=== PATIENT | female | born 1985 | race Caucasian/White ===

== ENCOUNTER 2018-01-16 20:36 | Emergency (ER) | payer BC ==
--- NOTE | 2018-01-16 20:53 | ER Document Report ---
ED Medical Screen (RME) - General Chief Complaint: Flank Pain Stated Complaint: FLANK PAIN Time Seen by Provider: 01/16/18 20:50 Mode of Arrival: Wheelchair Information source: Patient Notes: 32-year-old female presented to ED for complaint of left pelvic and flank pain started about 430 today. She states about 730 it got much worse. She states she has been nauseated but no vomiting. She states it was cramping but now has moved around to the flank area. She states she has had previous kidney stones but they were more to the back and this is. She states that her last menstrual cycle was 21 December. Patient is alert and oriented respirations regular and unlabored, speaking in full sentences. She is in a wheelchair due to the pain. I have greeted and performed a rapid initial assessment of this patient. A comprehensive ED assessment and evaluation of the patient, analysis of test results and completion of medical decision making process will be conducted by an additional ED providers. TRAVEL OUTSIDE OF THE [place] IN LAST 30 DAYS: No - Related Data Allergies/Adverse Reactions: hydromorphone HCl [From Dilaudid] Allergy (Severe, Verified 04/08/15 17:41) chest pain, deafness soy [Soy] Allergy (Verified 04/08/15 17:41) n and v Past Medical History - Past Medical History Cardiac Medical History: Reports: Hx Hypertension - on meds, currently being taper off (with ) Denies: Hx Heart Murmur Neurological Medical History: Denies: Hx Seizures Endocrine Medical History: Reports: Hx Hypothyroidism - on meds. Denies: Hx Hyperthyroidism. Comment Only: Hx Diabetes Mellitus Type 2 - glucose intolerance Renal/ Medical History: Reports: Hx Kidney Stones Psychiatric Medical History: Reports: Hx Depression - depression Denies: Hx Bipolar Disorder, Hx Post Traumatic Stress Disorder, Hx Schizophrenia Past Surgical History: Reports: Hx Section - 6, Hx Cholecystectomy, Hx Thyroid Surgery - Complete thyroidectomy.. Denies: Hx Hysterectomy, Hx Pacemaker - Immunizations Immunizations up to date: Yes Hx Diphtheria, Pertussis, Tetanus Vaccination: Yes Physical Exam - Vital signs Vitals: Temp Pulse Resp BP Pulse Ox 98.1 F 94 20 151/111 H 98 01/16/18 20:43 01/16/18 20:43 01/16/18 20:43 01/16/18 20:43 01/16/18 20:43 Course - Vital Signs Vital signs: Temp Pulse Resp BP Pulse Ox 98.1 F 94 20 151/111 H 98 01/16/18 20:43 01/16/18 20:43 01/16/18 20:43 01/16/18 20:43 01/16/18 20:43 Doctor's Discharge - Discharge Referrals: CATALINA TAYLOR MD [Primary Care Provider] - Follow up as needed
[2018-01-16 21:41] LABS: ABSOLUTE BASOPHILS # (AUTO) 0.1 10^3/uL (0.0-0.2); ABSOLUTE EOSINOPHILS # (AUTO) 0.4 10^3/uL (0.0-0.6); ABSOLUTE LYMPHOCYTES (AUTO) 2.3 10^3/uL (0.5-4.7); ABSOLUTE MONOCYTES (AUTO) 0.7 10^3/uL (0.1-1.4); ABSOLUTE NEUT (AUTO) 8.8 10^3/uL (1.7-8.2); BASOPHILS % (AUTO) 0.5 % (0-2); EOSINOPHILS % (AUTO) 3.1 % (0-6); HEMATOCRIT 41.7 % (36.0-47.0); HEMOGLOBIN 14.4 g/dL (12.0-15.5); LYMPHOCYTES % (AUTO) 19.2 % (13-45); MEAN CORPUSCULAR HEMOGLOBIN 29.1 pg (27.0-33.4); MEAN CORPUSCULAR HGB CONC 34.6 g/dL (32.0-36.0); MEAN CORPUSCULAR VOLUME 84 fl (80-97); MONOCYTES % (AUTO) 5.5 % (3-13); PLATELET COUNT 297 10^3/uL (150-450); RED BLOOD COUNT 4.97 10^6/uL (3.72-5.28); RED CELL DISTRIBUTION WIDTH 12.5 % (11.5-14.0); SEGMENTED NEUTROPHILS % (AUTO) 71.7 % (42-78); TOTAL CELLS COUNTED % (AUTO) 100 %; WHITE BLOOD COUNT 12.2 10^3/uL (4.0-10.5)
[2018-01-16] MEDS ORDERED: KETOROLAC TROMETHAMINE INJ/PF 30 MG/1 ML SDV IV ONE (21:44)
[2018-01-16] MEDS ORDERED: NORMAL SALINE 1000 ML 1,000 ML IV ONE (21:45)
[2018-01-16] MEDS ORDERED: ONDANSETRON HCL INJ/PF 4 MG/2 ML SDV IV ONE (21:45)
--- NOTE | 2018-01-16 21:48 | ER Document Report ---
ED GI/ - General Chief Complaint: Flank Pain Stated Complaint: FLANK PAIN Time Seen by Provider: 01/16/18 20:50 Mode of Arrival: Wheelchair Notes: Patient is a 32-year-old female that comes to the emergency department for chief complaint of sudden onset left lower abdominal pain radiating around to her left left-sided flank. She reports nausea without vomiting. She denies vaginal discharge or bleeding, dysuria, hematuria, fever or chills. She does have a history of both ovarian cysts and kidney stone. Remaining past medical history includes hypertension, hypothyroidism, cholecystectomy, C-sections. TRAVEL OUTSIDE OF THE [place] IN LAST 30 DAYS: No - Related Data Allergies/Adverse Reactions: hydromorphone HCl [From Dilaudid] Allergy (Severe, Verified 04/08/15 17:41) chest pain, deafness soy [Soy] Allergy (Verified 04/08/15 17:41) n and v Past Medical History - General Information source: Patient - Social History Smoking Status: Never Smoker Frequency of alcohol use: None Drug Abuse: None Lives with: Family Family History: Reviewed & Not Pertinent - Pt. is adopted - Past Medical History Cardiac Medical History: Reports: Hx Hypertension - on meds, currently being taper off (with ) Denies: Hx Heart Murmur Neurological Medical History: Denies: Hx Seizures Endocrine Medical History: Reports: Hx Hypothyroidism - on meds. Denies: Hx Hyperthyroidism. Comment Only: Hx Diabetes Mellitus Type 2 - glucose intolerance Renal/ Medical History: Reports: Hx Kidney Stones Psychiatric Medical History: Reports: Hx Depression - depression Denies: Hx Bipolar Disorder, Hx Post Traumatic Stress Disorder, Hx Schizophrenia Past Surgical History: Reports: Hx Section - 6, Hx Cholecystectomy, Hx Thyroid Surgery - Complete thyroidectomy.. Denies: Hx Hysterectomy, Hx Pacemaker - Immunizations Immunizations up to date: Yes Hx Diphtheria, Pertussis, Tetanus Vaccination: Yes Review of Systems - Review of Systems Constitutional: No symptoms reported EENT: No symptoms reported Cardiovascular: No symptoms reported Respiratory: No symptoms reported Gastrointestinal: See HPI Genitourinary: See HPI Female Genitourinary: No symptoms reported Musculoskeletal: No symptoms reported Skin: No symptoms reported Hematologic/Lymphatic: No symptoms reported Neurological/Psychological: No symptoms reported Physical Exam - Vital signs Vitals: Temp Pulse Resp BP Pulse Ox 98.1 F 94 20 151/111 H 98 01/16/18 20:43 01/16/18 20:43 01/16/18 20:43 01/16/18 20:43 01/16/18 20:43 - Notes Notes: GENERAL: Alert, interacts well. Minimal discomfort, no noted distress HEAD: Normocephalic, atraumatic. EYES: Pupils equal, round, and reactive to light. Extraocular movements intact. ENT: Oral mucosa moist, tongue midline. Oropharynx unremarkable. Airway patent. Nares patent, no nasal septal hematoma, TM's intact. NECK: Full range of motion. Supple. Trachea midline. LUNGS: Clear to auscultation bilaterally, no wheezes, rales, or rhonchi. No respiratory distress. HEART: Regular rate and rhythm. No murmur ABDOMEN: There is mild generalized left abdominal tenderness, nonspecific, no guarding. Remaining abdomen benign. GENITOURINARY: Deferred EXTREMITIES: Moves all 4 extremities spontaneously. No edema, normal radial and dorsalis pedis pulses bilaterally. No cyanosis. BACK: no cervical, thoracic, lumbar midline tenderness. No saddle anesthesia, normal distal neurovascular exam. No CVA tenderness noted. NEUROLOGICAL: Alert and oriented x3. Normal speech. [cranial nerves II through XII grossly intact]. PSYCH: Normal affect, normal mood. SKIN: Warm, dry, normal turgor. No rashes or lesions noted. Course - Re-evaluation Re-evalutation: Patient's abdomen is unremarkable. She does not appear to be in significant distress but she is reporting pain. She does not have any noted CVA tenderness. No tachycardia, fever, hypotension. CBC unremarkable, chemistry unremarkable, urinalysis shows hematuria suggesting ureterolithiasis. No infection in the urine. Ultrasound showing mild left hydronephrosis. Discussed with patient. After medications her symptoms have completely resolved. Patient will be provided with symptom management, discussed close urology follow-up, discussed return precautions in detail, patient states satisfaction and agreement. - Vital Signs Vital signs: Temp Pulse Resp BP Pulse Ox 98.1 F 85 18 129/86 H 98 01/16/18 20:43 01/17/18 00:20 01/17/18 00:20 01/17/18 00:20 01/17/18 00:20 - Laboratory Result Diagrams: 01/16/18 20:55 01/16/18 20:55 Laboratory results interpreted by me: 01/16/18 01/16/18 01/16/18 20:55 20:55 20:55 WBC 12.2 H Absolute Neutrophils 8.8 H Calcium 10.4 H Urine Protein 30 H Urine Blood LARGE H Discharge - Discharge Clinical Impression: LLQ abdominal pain, Left flank pain Hematuria Qualifiers: Hematuria type: other microscopic Qualified Code(s): R31.29 - Other microscopic hematuria Condition: Stable Disposition: HOME, SELF-CARE Additional Instructions: Your evaluation indicates a passing kidney stone on the left side. Take nausea medication as needed, take Toradol and morphine pain medicine as prescribed if needed. Drink plenty of fluids and rest. Follow-up with the urology referral listed below for additional evaluation and management, call tomorrow for the appointment. Return if you worsen including vomiting, severe worsening pain, fever of 100.4 or greater, or any other concerning or worsening symptoms. [facility] [address] [place], [place] [id number] [facility] [address] [place], [place] [id number] Micheal Meredith MD Doctor in [place], [place] Address: [address] [place] [address] [address], [place] [address] Prescriptions: Morphine Sulfate [Morphine Ir 15 Mg Tablet] 15 mg PO Q4HP PRN #12 tablet PRN Reason: Ketorolac Tromethamine [Toradol 10 mg Tablet] 10 mg PO Q8HP PRN #24 tablet PRN Reason: Ondansetron [Zofran Odt 4 mg Tablet] 1 - 2 tab PO Q4H PRN #15 tab.rapdis PRN Reason: For Nausea/Vomiting Referrals: CATALINA TAYLOR MD [Primary Care Provider] - Follow up as needed
[2018-01-16 21:49] LABS: APPEARANCE,URINE SLIGHTLY-CLOUDY; BILIRUBIN,URINE NEGATIVE (NEGATIVE); CALCIUM OXALATE CRYSTALS,URINE RARE /HPF; COLOR,URINE YELLOW; GLUCOSE, URINE NEGATIVE (NEGATIVE); KETONES,URINE NEGATIVE (NEGATIVE); LEUKOCYTE ESTERASE,URINE NEGATIVE (NEGATIVE); NITRITE,URINE NEGATIVE (NEGATIVE); PROTEIN,URINE 30 mg/dL (NEGATIVE); URINE SPECIFIC GRAVITY 1.021; UROBILINOGEN,URINE NEGATIVE mg/dL (<2.0)
[2018-01-16 22:04] LABS: ALANINE AMINOTRANSFERASE 22 U/L (9-52); ALBUMIN 4.5 g/dL (3.5-5.0); ALKALINE PHOSPHATASE 79 U/L (38-126); ANION GAP 12 (5-19); ASPARTATE AMINO TRANSFERASE 23 U/L (14-36); BILIRUBIN,DIRECT 0.2 mg/dL (0.0-0.4); BILIRUBIN,TOTAL 0.6 mg/dL (0.2-1.3); BLOOD UREA NITROGEN 10 mg/dL (7-20); CALCIUM 10.4 mg/dL (8.4-10.2); CARBON DIOXIDE 25 mmol/L (22-30); CHLORIDE 104 mmol/L (98-107); GLUCOSE 100 mg/dL (75-110); POTASSIUM 4.3 mmol/L (3.6-5.0); TOTAL PROTEIN 7.6 g/dL (6.3-8.2)
[2018-01-16] MEDS ORDERED: FENTANYL CITRATE INJ/PF 100 MCG/2 ML AMPUL IV ONE (23:01)
--- NOTE | 2018-01-16 23:08 | RADIOLOGY REPORT (SQ) ---
EXAM DESCRIPTION: US RETROPERITONEUM LIMITED COMPLETED DATE/TME: 01/16/2018 21:56 CLINICAL HISTORY: 32 years, Female, flank pain, nausea, eval kidneys COMPARISON: None. TECHNIQUE: Transverse and longitudinal sonographic images of the kidneys LIMITATIONS: None. FINDINGS: The right kidney measures 9 x 5 cm. The left kidney measures 11 x 5 cm. Mild left-sided hydronephrosis of the indeterminate etiology. No right-sided hydronephrosis. No renal mass or calculus. No perinephric fluid collection. The cortical medullary differentiation is preserved bilaterally. IMPRESSION: Mild left-sided hydronephrosis of indeterminate etiology 2010 [facility] [employer]- All Rights Reserved
[2018-01-16] MEDS ORDERED: HYDROCODONE/ACETAMINOPHEN 5-325 MG (6 TAB/ER DISP) PO PRN (23:37)
[2018-01-16] MEDS ORDERED: ONDANSETRON ODT 4 MG TAB (6 TAB/ER DISP) PO PRN (23:37)
[2018-01-17 00:49] VITALS: BP 129/86
== END 2018-01-17 00:35 | disposition home or self-care (01) ==
LOC: ER 20:36
DX: R31.29 Other microscopic hematuria (principal); R10.32 Left lower quadrant pain; R10.9 Unspecified abdominal pain; R11.0 Nausea; I10 Essential (primary) hypertension; Z79.899 Other long term (current) drug therapy; E11.9 Type 2 diabetes mellitus without complications
CPT/HCPCS: 99284; 96361; 96374; 96375; 36415; 84703; 85025; 80053; 81001; 76775; J3010; J1885; J2405; J7030

== ENCOUNTER 2019-09-08 13:05 | Emergency (ER) | payer BC ==
--- NOTE | 2019-09-08 13:52 | ER Document Report ---
ED Medical Screen (RME) - General Chief Complaint: Arm Problem Stated Complaint: ARM SWELLING Time Seen by Provider: 09/08/19 13:48 Primary Care Provider: CATALINA TAYLOR MD [Primary Care Provider] - Follow up as needed Mode of Arrival: Ambulatory Information source: Patient Notes: HPI; 34-year-old female presents emergency room complaining of right upper arm swelling. Had gastric sleeve on Monday IV was in the right arm. States she woke up with the swelling this morning. Was told to come to the ER to rule out a DVT. No recent travel. No history of DVTs or PEs in the past. Is right- handed. PE: Alert and oriented x3. Mild distress noted. Lungs: Clear to auscultation without rales, rhonchi, wheezes. Heart: Regular rate and rhythm without murmurs, rubs, gallops. Right radial pulse. Swelling noted to right upper extremity. I have greeted and performed a rapid initial assessment of this patient. A comprehensive ED assessment and evaluation of the patient, analysis of test results and completion of the medical decision making process will be conducted by additional ED providers. I have specifically instructed the patient or family members with the patient to immediately return to any nursing staff should anything change in the patient's condition or with their chief complaint. TRAVEL OUTSIDE OF THE [place] IN LAST 30 DAYS: No - Related Data Allergies/Adverse Reactions: hydromorphone HCl [From Dilaudid] Allergy (Severe, Verified 09/08/19 13:43) chest pain, deafness soy [Soy] Allergy (Verified 09/08/19 13:43) n and v Home Medications: hydrocodone omeprazole zofran labetalol loboxil Past Medical History - Social History Chew tobacco use (# tins/day): No Frequency of alcohol use: None Drug Abuse: None - Past Medical History Cardiac Medical History: Reports: Hx Hypertension - on meds, currently being taper off (with ) Denies: Hx Heart Murmur Neurological Medical History: Denies: Hx Seizures Endocrine Medical History: Reports: Hx Hypothyroidism - on meds. Denies: Hx Hyperthyroidism. Comment Only: Hx Diabetes Mellitus Type 2 - glucose intolerance Renal/ Medical History: Reports: Hx Kidney Stones. Denies: Hx Peritoneal Dialysis Psychiatric Medical History: Reports: Hx Depression - depression Denies: Hx Bipolar Disorder, Hx Post Traumatic Stress Disorder, Hx Schizophrenia Past Surgical History: Reports: Hx Section - 6, Hx Cholecystectomy, Hx Thyroid Surgery - Complete thyroidectomy.. Denies: Hx Hysterectomy, Hx Pacemaker - Immunizations Immunizations up to date: Yes Hx Diphtheria, Pertussis, Tetanus Vaccination: Yes Physical Exam - Vital signs Vitals: Temp Pulse Resp BP Pulse Ox 98.7 F 110 H 16 156/117 H 95 09/08/19 13:14 09/08/19 13:14 09/08/19 13:14 09/08/19 13:14 09/08/19 13:14 Course - Vital Signs Vital signs: Temp Pulse Resp BP Pulse Ox 98.7 F 110 H 16 156/117 H 95 09/08/19 13:44 09/08/19 13:14 09/08/19 13:14 09/08/19 13:14 09/08/19 13:14 Doctor's Discharge - Discharge Referrals: CATALINA TAYLOR MD [Primary Care Provider] - Follow up as needed
--- NOTE | 2019-09-08 16:05 | ER Document Report ---
ED Extremity Problem, Upper - General Chief Complaint: Arm Problem Stated Complaint: ARM SWELLING Time Seen by Provider: 09/08/19 13:48 Primary Care Provider: CATALINA TAYLOR MD [Primary Care Provider] - Follow up in 3-5 days Mode of Arrival: Ambulatory Notes: Patient is a 34-year-old female who presents to the emergency department with a chief complaint of right upper arm swelling. Patient was seen at [facility] on Monday and had a gastric sleeve done. Patient had her IV in her right arm. This morning she woke up and had some swelling and pain to her right arm. Patient called the on-call nurse and was told to go to the emergency department. Patient is right-handed. Denies any fever, body aches, or chills. TRAVEL OUTSIDE OF THE [place] IN LAST 30 DAYS: No - Related Data Allergies/Adverse Reactions: hydromorphone HCl [From Dilaudid] Allergy (Severe, Verified 09/08/19 13:43) chest pain, deafness soy [Soy] Allergy (Verified 09/08/19 13:43) n and v Home Medications: hydrocodone omeprazole zofran labetalol loboxil Past Medical History - General Information source: Patient - Social History Smoking Status: Never Smoker Chew tobacco use (# tins/day): No Frequency of alcohol use: None Drug Abuse: None Family History: Reviewed & Not Pertinent - Pt. is adopted Patient has homicidal ideation: No - Past Medical History Cardiac Medical History: Reports: Hx Hypertension - on meds Denies: Hx Heart Murmur Neurological Medical History: Denies: Hx Seizures Endocrine Medical History: Reports: Hx Hypothyroidism - on meds. Denies: Hx Hyperthyroidism. Comment Only: Hx Diabetes Mellitus Type 2 - glucose intolerance Renal/ Medical History: Reports: Hx Kidney Stones. Denies: Hx Peritoneal Dialysis Psychiatric Medical History: Reports: Hx Depression - depression Denies: Hx Bipolar Disorder, Hx Post Traumatic Stress Disorder, Hx Schizophrenia Past Surgical History: Reports: Hx Section - 6, Hx Cholecystectomy, Hx Orthopedic Surgery - ACL reconstruction 2018, Hx Thyroid Surgery - Complete thyroidectomy.. Denies: Hx Hysterectomy, Hx Pacemaker - Immunizations Immunizations up to date: Yes Hx Diphtheria, Pertussis, Tetanus Vaccination: Yes Review of Systems - Review of Systems Notes: REVIEW OF SYSTEMS: CONSTITUTIONAL : Denies recent illness. Denies recent unintentional weight loss. Denies fever, chills, or sweats. EENT: Denies eye, ear, throat, or mouth pain, discharge, or symptoms. Denies nasal or sinus congestion. CARDIOVASCULAR: Denies chest pain. RESPIRATORY: Denies shortness of breath, cough, congestion, difficulty breathing, or wheezing. GASTROINTESTINAL: Denies nausea, vomiting, and diarrhea. Denies abdominal pain. Denies constipation. GENITOURINARY: Denies difficulty urinating, burning, blood in urine, urgency or frequency. MUSCULOSKELETAL: Denies neck and back pain. See HPI. SKIN: See HPI. HEMATOLOGIC : Denies easy bruising or bleeding. LYMPHATIC: Denies swollen, painful, enlarged glands. NEUROLOGICAL: Denies no numbness or tingling denies weakness. Denies headache. Denies altered mental status. Denies alteration in speech. PSYCHIATRIC: Denies stress, anxiety, alteration in sleep patterns, or depression. All other systems reviewed and negative. Physical Exam - Vital signs Vitals: Temp Pulse Resp BP Pulse Ox 98.7 F 110 H 16 156/117 H 95 09/08/19 13:14 09/08/19 13:14 09/08/19 13:14 09/08/19 13:14 09/08/19 13:14 - Notes Notes: PHYSICAL EXAMINATION: GENERAL: Appears well, healthy, well-nourished, no acute distress. HEAD: Normocephalic, atraumatic. EYES: PERRL, conjunctiva normal, all extraocular movements intact, sclera nonicteric ENT: Moist mucous membranes. NECK: Supple, no noticeable swelling, redness, rash. Normal range of motion. LUNGS: Equal breath sounds bilaterally and clear to auscultation. No wheezes rales or rhonchi. CARDIOVASCULAR: S1-S2, regular rate, regular rhythm. Radial pulses 2+, normal. ABDOMEN: Normoactive bowel sounds. Soft, nontender, no guarding, no rebound tenderness, and no masses palpated. EXTREMITIES: Normal strength and range of motion, no pitting or edema. No cyanosis. NEUROLOGICAL: Moves all extremities upon command. Strength 5/5 in all extremities. PSYCH: Normal mood, normal affect. SKIN: Warm, dry. No rash, lesions, ulcerations noted. Normal skin turgor. Course - Re-evaluation Re-evalutation: 09/08/19 16:01 Venous Doppler study is unofficially negative. Patient presents with symptoms most consistent with an acute cellulitis. Vitals within normal limits. Patient does not meet sepsis criteria is overall very well in appearance. Exam and history are not consistent with DVT. Patient will be started on coverage for both staph and strep. At this time will discharge with return precautions and follow-up recommendations. Verbal discharge instructions given a the bedside and opportunity for questions given. Medication warnings reviewed. Patient is in agreement with this plan and has verbalized understanding of return precautions and the need for primary care follow-up in the next 24-72 hours. - Vital Signs Vital signs: Temp Pulse Resp BP Pulse Ox 98.7 F 110 H 16 156/117 H 95 09/08/19 13:44 09/08/19 13:14 09/08/19 13:14 09/08/19 13:14 09/08/19 13:14 Discharge - Discharge Clinical Impression: Swelling of right upper extremity Cellulitis Qualifiers: Site of cellulitis: extremity Site of cellulitis of extremity: upper extremity Laterality: right Qualified Code(s): L03.113 - Cellulitis of right upper limb Condition: Stable Disposition: HOME, SELF-CARE Additional Instructions: The rash is likely due to infection of your skin. You need to take the antibiotics as prescribed. Do not stop even if the rash goes away until you have completed all the antibiotics. The area of redness was traced out here in the emergency department with a marking pen. You need to return to emergency department if the redness spreads outside of this area by more than 2 cm in any direction. You should also return if you develop fevers with temperature greater than 101, persistent vomiting, worsening pain, or have any other symptoms that are concerning to you. Take your pain medication that was given to you by your surgeon every 12 hours with 650 mg of Tylenol. 6 hours after receiving your pain medication, take 975 mg of Tylenol. You can use children's Tylenol, as this is in liquid form. Prescriptions: Cephalexin Monohydrate [Keflex 250 mg/5 ml Susp] 500 mg PO Q6H #1 bottle Referrals: CATALINA TAYLOR MD [Primary Care Provider] - Follow up in 3-5 days
--- NOTE | 2019-09-08 16:16 | RADIOLOGY REPORT (SQ) ---
EXAM DESCRIPTION: VENOUS UNILATERAL UPPER IMAGES COMPLETED DATE/TIME: 09/08/2019 4:02 pm REASON FOR STUDY: right arm swelling COMPARISON: None. TECHNIQUE: Dynamic and static ivory scale and color images acquired of the right arm venous system. S elected spectral images acquired with additional compression and augmentation maneuvers. The contrala teral subclavian vein and internal jugular vein were also imaged. Images stored on PACS. LIMITATIONS: None. FINDINGS: INTERNAL JUGULAR VEIN: Normal phasicity, compression, augmentation. No visualized echogeni c material on ivory scale. No defects on color images. Comparison opposite side normal. SUBCLAVIAN VEIN: Normal compression, augmentation. No visualized echogenic material on ivory scale. No defects on color images. AXILLARY VEIN: Normal compression, augmentation. No visualized echogenic material on ivory scale. No d efects on color images. BRACHIAL VEIN: Normal compression, augmentation. No visualized echogenic material on ivory scale. No d efects on color images. BASILIC VEIN: Normal compression, augmentation. No visualized echogenic material on ivory scale. No de fects on color images. CEPHALIC VEIN: Normal compression, augmentation. No visualized echogenic material on ivory scale. No d efects on color images. OTHER: No other significant finding. CONTRALATERAL SUBCLAVIAN VEIN AND INTERNAL JUGULAR VEIN: Not assessed. IMPRESSION: NO EVIDENCE DVT OR SVT RIGHT ARM. TECHNICAL DOCUMENTATION: JOB ID: [id number] 2010 [employer]- All Rights Reserved Reading location - IP/workstation name: [email or web address]
[2019-09-08 16:18] VITALS: BP 176/111
== END 2019-09-08 16:17 | disposition home or self-care (01) ==
LOC: ER 13:05
DX: L03.113 Cellulitis of right upper limb (principal); M79.601 Pain in right arm; Z98.84 Bariatric surgery status; I10 Essential (primary) hypertension; E89.0 Postprocedural hypothyroidism; Z79.899 Other long term (current) drug therapy; Z79.891 Long term (current) use of opiate analgesic; Z88.6 Allergy status to analgesic agent; Z88.5 Allergy status to narcotic agent; Z91.018 Allergy to other foods
CPT/HCPCS: 93971; 99283

== ENCOUNTER 2019-09-24 14:36 | Emergency (ER) | payer BC ==
--- NOTE | 2019-09-24 15:35 | ER Document Report ---
ED Medical Screen (RME) - General Chief Complaint: Post Surgical Pain Stated Complaint: POST OP PAIN Time Seen by Provider: 09/24/19 15:24 Primary Care Provider: CATALINA TAYLOR MD [Primary Care Provider] - Follow up as needed TRAVEL OUTSIDE OF THE [place] IN LAST 30 DAYS: No - HPI Notes: 09/24/19 15:28 34-year-old female with a history of hypertension, hypothyroidism and GERD p resents to the emergency room for evaluation of substernal chest pain that radiates to her back, sharp and stabbing which started yesterday. Patient reports that she had a gastric sleeve done on September 06, [address] Mcdonald in [place]. Patient denies being on blood thinners, is not on control, does not smoke, has never had cancer. At triage patient was tachycardic with a heart rate of 103. reports . Patient states that she does have shortness of breath on exertion but did not have any shortness of breath at rest. Denies any nausea vomiting or diarrhea. Patient is on a pured diet, tolerating food intake without any issues. Last menstrual cycle was August 29, 2019. Gastric sleeve was done laparoscopically. Denies any fevers or chills. Patient takes labetalol 20 mg twice daily, Levoxyl 175 mg daily and omeprazole 40 mg daily. Consult[address] with Dr. Maguire, ER supervising physician who agreed with CTA of chest and abdomen due to recent surgery for concern of adhesions and with patient having pain that radiates to her back and sharp and constant, tachycardia, obese, history of hypertension on medication at 1542. Spoke with scada technician who stated that if scans are normal, and were concerned about gastric sleeve leaking, we can do oral contrast with CT of her abdomen thereafter 09/24/19 15:38 I have greeted and performed a rapid initial assessment of this patient. A comprehensive ED assessment and evaluation of the patient, analysis of test results and completion of the medical decision making process will be conducted by additional ED providers. PHYSICAL EXAMINATION: GENERAL: Well-appearing, well-nourished and in no acute distress. NECK: Normal range of motion CV: s1, s2 regular LUNGS: No respiratory distress abd: Tenderness substernally/epigastric on palpation. 3 laparoscopic surgical scars, well-healing. No CVA tenderness appreciated bilaterally SKIN: Warm, Dry, normal turgor, no rashes or lesions noted. - Related Data Allergies/Adverse Reactions: hydromorphone HCl [From Dilaudid] Allergy (Severe, Verified 09/08/19 13:43) chest pain, deafness soy [Soy] Allergy (Verified 09/08/19 13:43) n and v Past Medical History - Past Medical History Cardiac Medical History: Reports: Hx Hypertension - on meds, currently being ta per off (with ) Denies: Hx Heart Murmur Neurological Medical History: Denies: Hx Seizures Endocrine Medical History: Reports: Hx Hypothyroidism - on meds. Denies: Hx Hyperthyroidism. Comment Only: Hx Diabetes Mellitus Type 2 - glucose intolerance Renal/ Medical History: Reports: Hx Kidney Stones. Denies: Hx Peritoneal Dialysis Psychiatric Medical History: Reports: Hx Depression - depression Denies: Hx Bipolar Disorder, Hx Post Traumatic Stress Disorder, Hx Schizophrenia Past Surgical History: Reports: Hx Section - 6, Hx Cholecystectomy, Hx Orthopedic Surgery - ACL reconstruction 2018, Hx Thyroid Surgery - Complete thyroidectomy.. Denies: Hx Hysterectomy, Hx Pacemaker - Immunizations Immunizations up to date: Yes Hx Diphtheria, Pertussis, Tetanus Vaccination: Yes Physical Exam - Vital signs Vitals: Temp Pulse Resp BP Pulse Ox 98.0 F 103 H 20 135/86 H 99 09/24/19 14:42 09/24/19 14:42 09/24/19 14:42 09/24/19 14:42 09/24/19 14:42 Course - Vital Signs Vital signs: Temp Pulse Resp BP Pulse Ox 98.0 F 103 H 20 135/86 H 99 09/24/19 14:42 09/24/19 14:42 09/24/19 14:42 09/24/19 14:42 09/24/19 14:42 Doctor's Discharge - Discharge Referrals: CATALINA TAYLOR MD [Primary Care Provider] - Follow up as needed
[2019-09-24 16:04] LABS: ABSOLUTE BASOPHILS # (AUTO) 0.1 10^3/uL (0.0-0.2); ABSOLUTE EOSINOPHILS # (AUTO) 0.3 10^3/uL (0.0-0.6); ABSOLUTE LYMPHOCYTES (AUTO) 1.5 10^3/uL (0.5-4.7); ABSOLUTE MONOCYTES (AUTO) 0.8 10^3/uL (0.1-1.4); ABSOLUTE NEUT (AUTO) 8.7 10^3/uL (1.7-8.2); BASOPHILS % (AUTO) 0.5 % (0-2); EOSINOPHILS % (AUTO) 2.5 % (0-6); HEMOGLOBIN 14.5 g/dL (12.0-15.5); LYMPHOCYTES % (AUTO) 13.2 % (13-45); MEAN CORPUSCULAR HEMOGLOBIN 29.3 pg (27.0-33.4); MEAN CORPUSCULAR HGB CONC 34.6 g/dL (32.0-36.0); MEAN CORPUSCULAR VOLUME 85 fl (80-97); MONOCYTES % (AUTO) 6.8 % (3-13); PLATELET COUNT 285 10^3/uL (150-450); RED BLOOD COUNT 4.96 10^6/uL (3.72-5.28); RED CELL DISTRIBUTION WIDTH 12.9 % (11.5-14.0); TOTAL CELLS COUNTED % (AUTO) 100 %; WHITE BLOOD COUNT 11.3 10^3/uL (4.0-10.5)
[2019-09-24 16:23] LABS: ALBUMIN 4.3 g/dL (3.5-5.0); ALKALINE PHOSPHATASE 108 U/L (38-126); ANION GAP 12 (5-19); ASPARTATE AMINO TRANSFERASE 26 U/L (14-36); BILIRUBIN,TOTAL 0.9 mg/dL (0.2-1.3); BLOOD UREA NITROGEN 9 mg/dL (7-20); CALCIUM 9.8 mg/dL (8.4-10.2); CARBON DIOXIDE 20 mmol/L (22-30); CHLORIDE 106 mmol/L (98-107); GLUCOSE 80 mg/dL (75-110); TOTAL PROTEIN 7.2 g/dL (6.3-8.2)
[2019-09-24 16:29] LABS: APPEARANCE,URINE SLIGHTLY-CLOUDY; BILIRUBIN,URINE SMALL (NEGATIVE); COLOR,URINE AMBER; GLUCOSE, URINE NEGATIVE (NEGATIVE); KETONES,URINE 80 mg/dL (NEGATIVE); LEUKOCYTE ESTERASE,URINE NEGATIVE (NEGATIVE); NITRITE,URINE NEGATIVE (NEGATIVE); PROTEIN,URINE 100 mg/dL (NEGATIVE); URINE SPECIFIC GRAVITY 1.032
--- NOTE | 2019-09-24 18:00 | EKG REPORT ---
SEVERITY:- NORMAL ECG - SINUS RHYTHM : Confirmed by: Markus Rowland MD 24-Sep-2019 18:00:03
--- NOTE | 2019-09-24 18:47 | RADIOLOGY REPORT (SQ) ---
EXAM DESCRIPTION: CTA CHEST IMAGES COMPLETED DATE/TIME: 09/24/2019 6:29 pm REASON FOR STUDY: substernal pain [id number], gastric sleeve 09/05 COMPARISON: None. TECHNIQUE: CT scan of the chest performed using helical scanning technique with dynamic intravenous contrast injection. Images reviewed with lung, soft tissue and bone windows. Reconstructed coronal and sagittal MPR images reviewed. All CT scanners at this facility use dose modulation, iterative reconstruction, and/or weight based d osing when appropriate to reduce radiation dose to as low as reasonably achievable (ALARA). [facility]: Dose Right [facility]: CareDose [facility]: Dose Right [facility]: Teradose 4D [facility]: Presentain CONTRAST TYPE AND DOSE: 100 mL Omnipaque 350- low osmolar. Contrast bolus adequate for pulmonary arteries and aorta. RENAL FUNCTION: BUN 9 creatinine 0.73 RADIATION DOSE: . LIMITATIONS: None. FINDINGS: LUNGS AND PLEURA: No masses, infiltrates, or pneumothorax. No pleural effusions or pleura l calcifications. AORTA AND GREAT VESSELS: No aneurysm. No dissection. HEART: No pericardial effusion. No significant coronary artery calcifications. PULMONARY ARTERIES: No emboli visualized in the main pulmonary arteries or the segmental branches. HILAR AND MEDIASTINAL STRUCTURES: No identified masses or abnormal nodes. HARDWARE: None in the chest. UPPER ABDOMEN: See separate report of the CT of the abdomen. THYROID AND OTHER SOFT TISSUES: No masses. No adenopathy. BONES: No acute or significant finding. 3D MIPS: Confirm above findings. OTHER: No other significant finding. IMPRESSION: There is no aortic aneurysm or dissection. There is no pulmonary embolus. No acute fin ding in the thorax. COMMENT: Quality ID # [id number]: Final reports with documentation of one or more dose reduction techniques (e.g., Automated exposure control, adjustment of the mA and/or kV according to patient size, use of iterative reconstruction technique) TECHNICAL DOCUMENTATION: JOB ID: [id number] 2010 [employer]- All Rights Reserved Reading location - IP/workstation name: [email or web address]
--- NOTE | 2019-09-24 19:00 | ER Document Report ---
ED General - General Chief Complaint: Abdominal Pain Stated Complaint: POST OP PAIN Time Seen by Provider: 09/24/19 15:24 Primary Care Provider: CATALINA TAYLOR MD [Primary Care Provider] - Follow up as needed TRAVEL OUTSIDE OF THE [place] IN LAST 30 DAYS: No - HPI Notes: Chief complaint: Subxiphoid discomfort and nausea status post gastric sleeve procedure HPI: 34-year-old female with a history of hypertension, hypothyroidism and GERD presents to the emergency room for evaluation of substernal chest pain that radiates to her back, sharp and stabbing which started yesterday. Pain is presently rated 3/10 intensity. She is not taking any analgesics at home. Patient was initially having intermittent discomfort and says this is now more constant and a little worse than at the time of onset. Patient reports that she had a gastric sleeve done on September 06, [address] Mcdonald in [place]. Patient denies being on blood thinners, is not on control, does not smoke, has never had cancer. At triage patient was tachycardic with a heart rate of 103. reports . Patient states that she does have shortness of breath on exertion but did not have any shortness of breath at rest. Patient has been mildly nauseated but denies vomiting or diarrhea. Patient is on a pured diet, tolerating food intake without any issues. Last menstrual cycle was August 29, 2019. Gastric sleeve was done laparoscopically. Denies any fevers or chills. History of hypertension. Previous thyroid surgery. Current medications: Labet alol 20 mg twice daily, Levoxyl 175 mg daily and omeprazole 40 mg daily. Non-smoker. Denies alcohol intake. Denies any known past history of pancreatitis or gallbladder disease. - Related Data Allergies/Adverse Reactions: hydromorphone HCl [From Dilaudid] Allergy (Severe, Verified 09/08/19 13:43) chest pain, deafness soy [Soy] Allergy (Verified 09/08/19 13:43) n and v Home Medications: gastric sleeve vit, omeprazole, BP meds Past Medical History - General Information source: Patient, [facility] Records - Social History Smoking Status: Never Smoker Frequency of alcohol use: None Drug Abuse: None Lives with: Family Family History: Reviewed & Not Pertinent - Pt. is adopted Patient has homicidal ideation: No - Past Medical History Cardiac Medical History: Reports: Hx Hypertension - on meds, currently being taper off (with ) Denies: Hx Heart Murmur Neurological Medical History: Denies: Hx Seizures Endocrine Medical History: Reports: Hx Hypothyroidism - on meds. Denies: Hx Hyperthyroidism. Comment Only: Hx Diabetes Mellitus Type 2 - glucose intolerance Renal/ Medical History: Reports: Hx Kidney Stones. Denies: Hx Peritoneal Dialysis Psychiatric Medical History: Reports: Hx Depression - depression Denies: Hx Bipolar Disorder, Hx Post Traumatic Stress Disorder, Hx Schizophrenia Past Surgical History: Reports: Hx Section - 6, Hx Cholecystectomy, Hx Orthopedic Surgery - ACL reconstruction 2018, Hx Thyroid Surgery - Complete thyroidectomy.. Denies: Hx Hysterectomy, Hx Pacemaker - Immunizations Immunizations up to date: Yes Hx Diphtheria, Pertussis, Tetanus Vaccination: Yes Review of Systems - Review of Systems Notes: Constitutional: Negative for fever. HENT: Negative for sore throat. Eyes: Negative for visual changes. Cardiovascular: Negative for chest pain. Respiratory: Negative for shortness of breath. Gastrointestinal: As per HPI Genitourinary: Negative for dysuria. Musculoskeletal: Pain intermittently radiates through to mid back area. Skin: Negative for rash. Neurological: Negative for headaches, weakness or numbness. 10 point ROS negative except as marked above and in HPI. Physical Exam - Vital signs Vitals: Temp Pulse Resp BP Pulse Ox 98.0 F 103 H 20 135/86 H 99 09/24/19 14:42 09/24/19 14:42 09/24/19 14:42 09/24/19 14:42 09/24/19 14:42 - Notes Notes: GENERAL: Well-developed well-nourished appearing in no acute distress. SKIN: Good turgor no rashes. HEAD: Normocephalic atraumatic. EYES: PERRLA. EOMI. Conjunctivae and sclerae clear. EARS: CANALS AND TMS CLEAR. NOSE: CLEAR. MOUTH: Moist mucosa. Good dentition. No stridor or edema. No drooling. NECK: Supple. No masses or thyromegaly. No adenopathy. Carotids 2+ without bruits. No JVD. BACK: Symmetrical without tenderness. CHEST: Respirations unlabored. Breath sounds clear and symmetrical. HEART: Regular rhythm. No murmur gallop or rub. ABDOMEN: Obese. Mildly tender epigastrium and right upper quadrant. Soft without masses, organomegaly or rebound. Bowel sounds normally active. No bruits. GENITALIA: Deferred. EXTREMITIES: No edema. No calf tenderness. Cap refill less than 1.5 seconds. Dorsalis pedis and posterior tibial pulses 3+ and symmetrical. NEUROLOGICAL: GCS 15. Alert and oriented x3. Normal gait. Fluent speech. Cranial nerves II through XII intact. Sensorimotor and cerebellar normal. Nor mal tone. PSYCHIATRIC: Appropriate affect. Course - Re-evaluation Re-evalutation: 09/24/19 19:41 Patient has elevation of her serum lipase to about 3100. White count is 11.5. Remainder of her labs are unremarkable. CT abdomen chest pelvis unremarkable. Findings are consistent with a postoperative pancreatitis. I will consult with her bariatric surgery service on-call physician covering for Dr. Mcdonald and we are awaiting return phone call at this time. 09/24/19 20:13 Dr. Mcdonald is comfortable with the patient receiving a liter of normal saline IV and then being discharged for clinic follow-up within the next 48 hours with repeat labs. Findings, clinical impression and plan of treatment have been discussed with patient/family. Understanding of current findings and recommendations has been acknowledged by them and there is agreement regarding disposition and follow-up. - Vital Signs Vital signs: Temp Pulse Resp BP Pulse Ox 98.0 F 103 H 15 109/88 H 100 09/24/19 14:42 09/24/19 14:42 09/24/19 18:01 09/24/19 18:01 09/24/19 18:01 - Laboratory Result Diagrams: 09/24/19 15:46 09/24/19 15:46 Laboratory results interpreted by me: 09/24/19 09/24/19 09/24/19 15:46 15:46 15:46 WBC 11.3 H Absolute Neuts (auto) 8.7 H Carbon Dioxide 20 L Lipase 3105.5 H Urine Protein 100 H Urine Ketones 80 H Urine Bilirubin SMALL H Urine Urobilinogen 2.0 H - Diagnostic Test Radiology reviewed: Reports reviewed - CT abdomen pelvis and chest unremarkable per radiologist. Discharge - Discharge Clinical Impression: Postoperative pancreatitis Condition: Stable Disposition: HOME, SELF-CARE Additional Instructions: Continue current medications. Return here as needed for new or worsening symptoms: Pain that is worsening or unimproved Uncontrolled vomiting High fever or shaking chills Overall worsening Call the bariatric clinic at [facility] tomorrow morning to arrange follow-up for or Monday of this week. Referrals: CATALINA TAYLOR MD [Primary Care Provider] - Follow up as needed
--- NOTE | 2019-09-24 19:09 | RADIOLOGY REPORT (SQ) ---
EXAM DESCRIPTION: CTA ABDOMEN/PELVIS W WO IMAGES COMPLETED DATE/TIME: 09/24/2019 6:29 pm REASON FOR STUDY: substernal pain [id number], gastric sleeve 09/05 COMPARISON: None. TECHNIQUE: CT scan of the abdominal aorta extending to the iliac bifurcation performed with intraven ous contrast using helical scanning technique with dynamic intravenous contrast injection. Images rev iewed with lung, soft tissue, and bone windows. Reconstructed coronal and sagittal MPR images reviewe d. All images stored on PACS. Advanced 3D imaging as volume rendering, MIPS, SSD performed? yes All CT scanners at this facility use dose modulation, iterative reconstruction, and/or weight based d osing when appropriate to reduce radiation dose to as low as reasonably achievable (ALARA). [facility]: Dose Right [facility]: CareDose [facility]: Dose Right [facility]: Teradose 4D [facility]: [place]o CONTRAST TYPE AND DOSE: contrast/concentration: Isovue 350.00 mmol/ml; Total Contrast Delivered: 100 .0 ml; Total Saline Delivered: 90.0 ml RENAL FUNCTION: BUN 9 creatinine 0.73 LIMITATIONS: None. FINDINGS: AORTA AND VESSELS: No aneurysm. No dissection. Renal arteries, SMA, celiac without stenosi s. LUNG BASES: See separate report for CTA of the chest. LIVER: On the contrast images, the right lobe of the liver is low in density and the left lobe of the liver is higher in density, but on the delayed images the liver is homogeneous. This is felt to be secondary to a difference in blood flow between the right and left lobes of the liver. SPLEEN: Normal size. No focal lesions. PANCREAS: No masses. No significant calcifications. No adjacent inflammation or peripancreatic fluid collections. Pancreatic duct not dilated. GALLBLADDER: Surgically absent. ADRENAL GLANDS: No significant masses or asymmetry. RIGHT KIDNEY AND URETER: No mass, calculi or urinary tract obstruction. LEFT KIDNEY AND URETER: No mass, calculi or urinary tract obstruction. RETROPERITONEUM: No retroperitoneal adenopathy, hemorrhage or masses. BOWEL AND PERITONEAL CAVITY: No obvious masses. No inflammatory changes. No bowel obstruction. APPENDIX: Not identified. PELVIS: Urinary bladder is normal. Free fluid in the pelvis. ABDOMINAL WALL: No masses. No hernias. BONY STRUCTURES: No significant or acute findings. 3-D IMAGING: Confirms the above findings. OTHER: No other significant finding. IMPRESSION: NO ABDOMINAL AORTIC ANEURYSM, DISSECTION OR SIGNIFICANT STENOSIS. NO SIGNIFICANT FINDING S IN THE ABDOMEN. TECHNICAL DOCUMENTATION: JOB ID: [id number] Quality ID # [id number]: Final reports with documentation of one or more dose reduction techniques (e.g., Au tomated exposure control, adjustment of the mA and/or kV according to patient size, use of iterative reconstruction technique) 2010 [employer]- All Rights Reserved Reading location - IP/workstation name: [email or web address]
[2019-09-24] MEDS ORDERED: NORMAL SALINE 1000 ML 1,000 ML IV ONE (20:08)
[2019-09-24 21:55] VITALS: BP 127/89
== END 2019-09-24 22:08 | disposition home or self-care (01) ==
LOC: ER 14:36
DX: K85.90 Acute pancreatitis without necrosis or infection, unspecified (principal); R07.2 Precordial pain; R00.0 Tachycardia, unspecified; R10.816 Epigastric abdominal tenderness; R10.811 Right upper quadrant abdominal tenderness; R06.02 Shortness of breath; R11.0 Nausea; I10 Essential (primary) hypertension; K21.9 Gastro-esophageal reflux disease without esophagitis; E89.0 Postprocedural hypothyroidism; Z79.899 Other long term (current) drug therapy; Z98.84 Bariatric surgery status; Z88.6 Allergy status to analgesic agent; Z88.5 Allergy status to narcotic agent; Z91.018 Allergy to other foods
CPT/HCPCS: 93005; 99284; 96360; 36415; 83690; 85025; 81025; 80053; 81001; 84484; 71275; 74174; 93010; J7030